=== PATIENT | female | born 1970 | race Caucasian/White ===

== ENCOUNTER → 2019-12-28 08:06 | Outpatient (CLI) | payer OTHER, SELFPAY ==
[2019-12-28 08:42] LABS: HDL Cholesterol 83 mg/dL (40-60); Triglycerides 216 mg/dL (35-150)
[2019-12-28 08:48] LABS: Cholesterol 320 mg/dL (140-199); LDL Cholesterol Calculated 194 mg/dL (<100)
[2019-12-28 09:19] LABS: Free T4, Direct Thyroxine 0.59 ng/dL (0.78-2.19)
== END ==
PROVIDERS: PCP Nurse Practitioner; Referring Provider Nurse Practitioner; Visit Provider Nurse Practitioner
DX: Z13.220 Encounter for screening for lipoid disorders (principal); E03.9 Hypothyroidism, unspecified; N95.9 Unspecified menopausal and perimenopausal disorder
CPT/HCPCS: 36415; 80061; 83001; 84439; 84443

== ENCOUNTER 2020-02-15 03:11 | Emergency (ER) | payer OTHER, SELFPAY ==
[2020-02-15 03:22] VITALS: BP 119/67; PULSE 72; RESP 14; TEMP 36.6; O2SAT 99; BMI 23.0
--- NOTE | 2020-02-15 03:30 | DI.RAD.S_ITS ---
PROCEDURE: XR CHEST 1V INDICATIONS: chest pain TECHNIQUE: One view of the chest was acquired. COMPARISON: None. FINDINGS: Surgical changes and devices: Right axillary clips.. Lungs and pleura: Lungs are clear. No pleural effusions or pneumothorax. Mediastinum: Mediastinal contours appear normal. Heart size is normal. Bones and chest wall: No suspicious bony lesions. Overlying soft tissues appear unremarkable. IMPRESSION: No acute cardiopulmonary disease process. Dictated by: Jenifer Mora MD, PhD on 02/15/2020 at 8:26 Approved by: Jenifer Mora MD, PhD on 02/15/2020 at 8:26
--- NOTE | 2020-02-15 03:33 | ED.CHESTPAIN ---
HPI - Chest Pain General Chief Complaint: Chest Pain Stated Complaint: chest pain through to back Time Seen by Provider: 02/15/20 03:14 Source: patient Mode of arrival: Ambulatory Limitations: no limitations History of Present Illness HPI narrative: The patient developed lower sternal chest pain yesterday evening. She has some discomfort when she went to bed. The discomfort persists, she is epigastric/lower chest pain radiating to her back. Apparently she has had similar pain before. Cardiac workups have always been negative. She does not think she has cardiac disease. A doctor's previously suggested that she has GERD. The pain is not radiate to her throat. She has never had EGD, barium swallow, or other evaluation to confirm the diagnosis. She takes ibuprofen almost every evening. She has no history of bleeding ulcers. She did take Pepcid, the Pepcid did not help. She has not been ill. She has no fever chills. She has no cough. Related Data Previous Rx's Medication Instructions Recorded tolterodine 4 mg capsule,extended 4 mg PO DAILY #90 cap 10/30/19 release 24 hr estradiol 0.075 mg/24 hr 1 patch TRANSDERMAL 2XW #24 each 11/02/19 semiweekly transdermal patch levothyroxine 175 mcg capsule 175 mcg PO DAILY #90 cap 11/02/19 progesterone micronized 100 mg 100 mg PO QAM #90 cap 11/02/19 capsule voltaren 10% gel See Rx Instructions .ROUTE 11/02/19 .COMPLEX #30 gram omeprazole 20 mg PO DAILY 14 Days cap 02/15/20 Allergies Allergy/AdvReac Type Severity Reaction Status Date / Time No Known Drug Allergies Allergy Verified 02/15/20 03:26 Review of Systems Review of Systems ROS Unobtainable: All systems reviewed & are unremarkable except as noted in HPI and below Constitutional Constitutional: Denies chills and Denies fever(s) ENT Ears, Nose, Mouth, and Throat: Denies dizziness and Denies sore throat Cardiovascular Cardiovascular: Reports as per HPI, Reports system reviewed and no additional complaints, except as documented and Denies dyspnea Respiratory Respiratory: Denies cough and Denies dyspnea Gastrointestinal Gastrointestinal: Reports as per HPI and Reports system reviewed and no additional complaints, except as documented Musculoskeletal Comments: Back pain is noted HPI. Integumentary/Breasts Skin/Breast: Denies erythema and Denies rash Neurologic Neurologic: Denies dizziness Patient History Medical History Bilateral hip pain (Chronic ~2018) Foot pain (Chronic) Hypothyroidism (acquired) (Acute) Melanoma (Inactive) Urinary urgency (Acute) Surgical History Anesthesia (Resolved) History of breast augmentation (Resolved ~2006) History of thyroidectomy (Resolved ~2005) History of tubal ligation (Resolved ~2005) Family History Father Hypertension Alcoholic Mother COPD (chronic obstructive pulmonary disease) Brother Suicide Social History Smoking Status: Never smoker Smoking Status: Never smoker alcohol intake frequency: 0-2 drinks per day Alcohol type: wine Substance Use Type: does not use Exam Initial Vital Signs Initial Vital Signs: Vital Signs Temperature 97.8 F 02/15/20 03:22 Pulse Rate 72 02/15/20 03:22 Respiratory Rate 14 02/15/20 03:22 Blood Pressure 119/67 02/15/20 03:22 Pulse Oximetry 99 02/15/20 03:22 Const General: cooperative and well developed Nutritional Appearance: well nourished [facility] Head: normocephalic and atraumatic Throat: posterior oropharynx normal Eyes Conjunctivae: conjunctivae normal Neck Neck: No JVD Chest Other: Lower sternal discomfort with palpation. Resp Effort & Inspection: normal respiratory effort and able to speak in complete sentences Auscultation: clear to auscultation bilaterally, no rales, no rhonchi and no wheezes Cardio Rate: regular rate Rhythm: regular rhythm Heart Sounds: S1 normal, S2 normal, no click, no gallops, no murmurs and no rubs Pulses: normal peripheral pulses GI Other: Mild epigastric discomfort. No distention. No guarding or rebound. Back/Spine/Pelvis Back: normal to inspection and No back tenderness Skin General: no rashes or lesions noted Neuro General: patient alert, patient oriented x3, gait normal and no focal motor deficits Speech: speech normal Extrem General: full ROM, no pedal edema and no calf tenderness Psych Appearance: well kempt Mental Status: mental status grossly normal Attitude: cooperative Course Course Course Narrative: The patient is pain-free after receiving the Protonix and GI cocktail. The cardiac workup is benign. She is discharged applied sec. She is advised follow-up her doctor, I would recommend an upper GI series. Orders Ordered: ED Orders 02/15/20 03:30 XR chest 1V Stat 02/15/20 03:40 Complete Blood Count AUTO DIFF Stat Comprehensive Metabolic Panel Stat Lipase Stat Prothrombin Time INR Stat Troponin & CK Cardiac Panel Stat Discontinued Medications Al Hydrox/Mg Hydrox/Simethicone 20 ml/ Lidocaine HCl 15 ml 0 ml PO NOW ONE Stop: 02/15/20 03:33 Last Admin: 02/15/20 03:46 Dose: 35 ml Documented by: GAUTAM Pantoprazole Sodium (Protonix) 40 mg IV NOW ONE Stop: 02/15/20 03:31 Last Admin: 02/15/20 03:46 Dose: 40 mg Documented by: GAUTAM Vital Signs Vital signs: Vital Signs - 8 hr 02/15/20 03:22 02/15/20 04:38 Temperature 97.8 F Pulse Rate 72 76 Respiratory Rate 14 15 Blood Pressure 119/67 Blood Pressure [Right Arm] 114/65 Pulse Oximetry 99 97 MDM - Chest Pain Lab Data Result diagrams: 02/15/20 03:40 02/15/20 03:40 Labs: Lab Results 02/15/20 02/15/20 02/15/20 Range/Units 03:40 03:40 03:40 WBC 4.4 L (4.5-11.0) X10^3/uL RBC 3.77 L (4.0-5.2) X10^6/uL Hgb 12.4 (12.0-16.0) g/dL Hct 36.0 (36-46) % MCV 95.3 (80-100) fL MCH 32.9 (26-34) PG MCHC 34.5 (30-36) % RDW 12.6 (11.6-14.8) % Plt Count 258 (150-400) X10^3/uL Neut % (Auto) 49.2 L (50-75) % Lymph % (Auto) 38.5 (25-40) % [place] % (Auto) 10.1 (3-14) % Eos % (Auto) 1.6 L (2-4) % Baso % (Auto) 0.6 (0-2) % Neut # (Auto) 2200 (2462-5544) /uL Lymph # (Auto) 1700 (8093-0520) /uL [place] # (Auto) 400 (0-900) /uL Eos # (Auto) 100 (0-450) /uL Baso # (Auto) 0 (0-100) /uL PT 11.3 (10.1-12.7) SECONDS INR 1.0 (0.9-1.3) Sodium 136 L (137-145) mmol/L Potassium 3.9 (3.4-5.1) mmol/L Chloride 106 (98-107) mmol/L Carbon Dioxide 27 (22-32) mmol/L BUN 17 (7-17) mg/dL Creatinine 0.78 (0.52-1.04) mg/dL Estimated GFR > 60.0 (>60) mL/min BUN/Creatinine Ratio 21.8 (6-22) Glucose 114 H (70-100) mg/dL Calcium 9.5 (8.4-10.2) mg/dL Total Bilirubin 0.3 (0.2-1.3) mg/dL AST 25 (14-36) IU/L ALT 19 (<35) IU/L Alkaline Phosphatase 42 (38-126) U/L Total Creatine Kinase 44 (30-135) U/L CK-MB (CK-2) TNP CK-MB (CK-2) Rel Index TNP Troponin I < 0.012 (0.01-0.034) ng/mL Total Protein 6.8 (6.3-8.2) g/dL Albumin 4.0 (3.5-5.0) g/dL Globulin 2.8 (1.7-4.1) g/dL Albumin/Globulin Ratio 1.4 (1.0-2.8) Lipase 88 (23-300) U/L Imaging Data Chest x-ray: My Impression: normal ECG Data Attestation: I personally reviewed and interpreted this ECG as follows: (Normal sinus rhythm rate 67 beats per minute. Normal intervals. No ectopy. No acute ST T wave changes.) Discharge Plan Departure Patient Disposition: Home Clinical Impression: Abdominal pain, epigastric Gastritis Qualifiers: Gastritis type: unspecified gastritis Chronicity: acute Gastritis bleeding: without bleeding Qualified Code(s): K29.00 - Acute gastritis without bleeding Instructions: DI for Epigastric Pain Activity Restrictions/Additional Instructions: Prilosec 20 mg daily for 2 weeks. Avoid ibuprofen. Tylenol 2 tabs every 4 hours as needed pain Recheck with her doctor, consider upper GI series for further evaluation Return to the ER as needed. Prescriptions: New omeprazole 20 mg capsule,delayed release(DR/EC) 20 mg PO DAILY 14 Days RF: 0 No Action estradiol 0.075 mg/24 hr patch semiweekly 1 patch transdermal 2XW Qty: 24 RF: 3 levothyroxine 175 mcg capsule 175 mcg PO DAILY Qty: 90 RF: 3 progesterone micronized 100 mg capsule 100 mg PO QAM Qty: 90 RF: 3 voltaren 10% gel See Rx Instructions .ROUTE .COMPLEX Qty: 30 RF: 2 tolterodine 4 mg capsule,extended release 24hr 4 mg PO DAILY Qty: 90 RF: 3 Referrals: Sarah Alves ARNP [Primary Care Provider] -
[2020-02-15] MEDS: MAG HYDROX/ALUMINUM/SIMETH SUS 20 ML, LIDOCAINE VISCOUS 2% 15 ML PO (03:46)
[2020-02-15] MEDS: PANTOPRAZOLE 40 MG VIAL IV (03:46)
[2020-02-15 03:49] LABS: Add Manual Diff / Slide Review NO; Basophils Absolute Auto 0 /uL (0-100); Basophils Percent Auto 0.6 % (0-2); Eosinophils Absolute Auto 100 /uL (0-450); Eosinophils Percent Auto 1.6 % (2-4); Hemoglobin 12.4 g/dL (12.0-16.0); Lymphocytes Absolute Auto 1700 /uL (1100-4500); Lymphocytes Percent Auto 38.5 % (25-40); Mean Corpuscular HGB Conc 34.5 % (30-36); Mean Corpuscular Hemoglobin 32.9 PG (26-34); Mean Corpuscular Volume 95.3 fL (80-100); Monocytes Absolute Auto 400 /uL (0-900); Monocytes Percent Auto 10.1 % (3-14); Neutrophils Absolute Auto 2200 /uL (1500-7000); Neutrophils Percent Auto 49.2 % (50-75); Platelet Count 258 X10^3/uL (150-400); Red Blood Cell Count 3.77 X10^6/uL (4.0-5.2); Red Cell Distribution Width 12.6 % (11.6-14.8); White Blood Cell Count 4.4 X10^3/uL (4.5-11.0)
[2020-02-15 03:53] LABS: Prothrombin Time 11.3 SECONDS (10.1-12.7)
[2020-02-15 03:58] LABS: Alanine Aminotransferase 19 IU/L (<35); Albumin Globulin Ratio 1.4 (1.0-2.8); Alkaline Phosphatase 42 U/L (38-126); Aspartate Aminotransferase 25 IU/L (14-36); BUN Creatinine Ratio 21.8 (6-22); Bilirubin Total 0.3 mg/dL (0.2-1.3); Blood Urea Nitrogen 17 mg/dL (7-17); Calcium 9.5 mg/dL (8.4-10.2); Carbon Dioxide 27 mmol/L (22-32); Chloride 106 mmol/L (98-107); Creatine Kinase 44 U/L (30-135); Estimated Glomerular Filt Rate > 60.0 mL/min (>60); Globulin 2.8 g/dL (1.7-4.1); Glucose 114 mg/dL (70-100); HEMOLYSIS < 15 (0-50); Lipase 88 U/L (23-300); Potassium 3.9 mmol/L (3.4-5.1); Sodium 136 mmol/L (137-145); Total Protein 6.8 g/dL (6.3-8.2)
[2020-02-15 04:09] LABS: Troponin I < 0.012 ng/mL (0.01-0.034)
[2020-02-15 04:38] VITALS: BP 114/65; PULSE 76; RESP 15; O2SAT 97
== END 2020-02-15 04:57 | disposition home or self-care (01) ==
PROVIDERS: Emergency Provider Emergency Medicine; PCP Nurse Practitioner
DX: R10.13 Epigastric pain (principal); K29.00 Acute gastritis without bleeding; R07.9 Chest pain, unspecified
CPT/HCPCS: 36415; 71045; 80053; 82550; 83690; 84484; 85025; 85610; 93005; 96374; 99284; C9113

== ENCOUNTER → 2020-06-28 | Outpatient (CLI) | payer OTHER, SELFPAY | PROVIDERS: PCP Nurse Practitioner; Referring Provider Internal Medicine; Visit Provider Internal Medicine | DX: Z23 Encounter for immunization (principal) | CPT/HCPCS: 90471; 90686 ==

== ENCOUNTER → 2020-08-10 13:14 | Outpatient (CLI) | payer OTHER, SELFPAY ==
[2020-08-10 15:55] LABS: COVID19 -Nasal RAPID Negative (Negative)
== END ==
PROVIDERS: PCP Nurse Practitioner; Visit Provider Physician Assistant
DX: Z11.59 Encounter for screening for other viral diseases (principal)
CPT/HCPCS: 87635

== ENCOUNTER → 2020-09-01 09:01 | Outpatient (CLI) | payer OTHER, SELFPAY ==
[2020-09-01] MEDS: COVID-19 VACC(MODERNA-1)/PF 100 MCG/0.5 ML VIAL IM (09:08)
== END ==
PROVIDERS: PCP Nurse Practitioner; Visit Provider Internal Medicine
DX: Z23 Encounter for immunization (principal)
CPT/HCPCS: 0011A; 91301

== ENCOUNTER → 2020-09-28 07:59 | Outpatient (CLI) | payer OTHER, SELFPAY ==
[2020-09-28] MEDS: COVID-19 VACC #2, MRNA(MOD) 100 MCG/0.5 ML VIAL IM (08:01)
== END ==
PROVIDERS: PCP Nurse Practitioner; Visit Provider Internal Medicine
DX: Z23 Encounter for immunization (principal)
CPT/HCPCS: 0012A; 91301

== ENCOUNTER → 2020-10-07 10:41 | Outpatient (CLI) | payer OTHER, SELFPAY ==
[2020-10-07 12:16] LABS: Free T4, Direct Thyroxine 3.24 ng/dL (0.78-2.19)
[2020-10-07 12:31] LABS: Thyroid Stimulating Hormone < 0.015 uIU/mL (0.47-4.68)
== END ==
PROVIDERS: PCP Nurse Practitioner; Referring Provider Nurse Practitioner; Visit Provider Nurse Practitioner
DX: E03.9 Hypothyroidism, unspecified (principal)
CPT/HCPCS: 36415; 84439; 84443

== ENCOUNTER → 2020-11-23 15:23 | Outpatient (CLI) | payer OTHER, SELFPAY ==
[2020-11-23 17:45] LABS: Thyroid Stimulating Hormone < 0.015 uIU/mL (0.47-4.68)
== END ==
PROVIDERS: PCP Nurse Practitioner; Referring Provider Nurse Practitioner; Visit Provider Nurse Practitioner
DX: E03.9 Hypothyroidism, unspecified (principal); Z79.899 Other long term (current) drug therapy
CPT/HCPCS: 36415; 84443

== ENCOUNTER → 2021-05-24 16:12 | Outpatient (CLI) | payer OTHER, SELFPAY ==
--- NOTE | 2021-05-24 16:16 | DI.US.S_ITS ---
PROCEDURE: US SOFT TISSUE HEAD AND NECK INDICATIONS: MASS/SWELLING LT NECK TECHNIQUE: Real-time scanning was performed of the neck region of interest, with image documentation. COMPARISON: None. FINDINGS: Small normal appearing lymph nodes are seen in bilateral neck soft tissue measures up to 3 mm in short axis diameter in left neck soft tissue and up to 3 mm in short axis diameter in right neck soft tissue. No discrete soft tissue mass or fluid collection is seen. IMPRESSION: Benign-appearing small bilateral neck soft tissue lymph nodes. No pathologically enlarged lymph nodes, soft tissue mass or fluid collection. Dictated by: Antoni Calderon M.D. on 05/24/2021 at 23:24 Approved by: Antoni Calderon M.D. on 05/24/2021 at 23:25
== END ==
PROVIDERS: PCP Nurse Practitioner; Referring Provider Nurse Practitioner; Visit Provider Nurse Practitioner
DX: E03.9 Hypothyroidism, unspecified (principal); R22.1 Localized swelling, mass and lump, neck
CPT/HCPCS: 76536

== ENCOUNTER → 2021-06-27 | Outpatient (CLI) | payer OTHER, SELFPAY ==
--- NOTE | 2021-06-27 | DI.MG.S_ITS ---
BILATERAL DIGITAL SCREENING MAMMOGRAM 3D/2D WITH CAD WITH AUGMENTATION: 06/27/2021 CLINICAL: Routine screening. Baseline exam. No prior exams were available for comparison. There are scattered fibroglandular elements in both breasts. Current study was also evaluated with a Computer Aided Detection (CAD) system. There is an oval low density asymmetry with an indistinct and circumscribed margin in the right breast middle depth inferior region seen on the mediolateral oblique view only. No other significant masses, calcifications, or other findings are seen in either breast. IMPRESSION: INCOMPLETE: NEEDS ADDITIONAL IMAGING EVALUATION The oval low density asymmetry in the right breast is indeterminate. Mediolateral and spot compression views as well as additional views with possible ultrasound are recommended. This exam was interpreted at Station ID: [id number]. NOTE: For mammograms, a report in lay terms will be sent to the patient. Approximately 15% of breast malignancies will not be visualized mammographically. In the management of a palpable breast mass, a negative mammogram must not discourage biopsy of a clinically suspicious lesion. Electronically Signed By: Kris jama/payam:07/05/2021 09:19:37 letter sent: Additional Imaging Needed ACR BI-RADS Category 0: Incomplete 3340F
== END ==
LOC: MAMMO 11:23
PROVIDERS: PCP Nurse Practitioner; Referring Provider Nurse Practitioner; Visit Provider Nurse Practitioner
DX: Z12.31 Encounter for screening mammogram for malignant neoplasm of breast (principal)
CPT/HCPCS: 77063; 77067

== ENCOUNTER → 2021-07-03 17:03 | Outpatient (CLI) | payer OTHER, SELFPAY ==
[2021-07-03 18:28] LABS: Thyroid Stimulating Hormone 26.6 uIU/mL (0.47-4.68)
== END ==
PROVIDERS: PCP Nurse Practitioner; Referring Provider Nurse Practitioner; Visit Provider Nurse Practitioner
DX: E03.9 Hypothyroidism, unspecified (principal); R22.1 Localized swelling, mass and lump, neck
CPT/HCPCS: 36415; 84443

== ENCOUNTER 2021-07-16 22:38 | Emergency (ER) | payer OTHER, SELFPAY ==
[2021-07-16 22:43] VITALS: BP 133/69; PULSE 76; RESP 16; TEMP 36.4; O2SAT 98; BMI 23.0
[2021-07-16 23:07] LABS: Add Manual Diff / Slide Review NO; Basophils Absolute Auto 0 /uL (0-100); Basophils Percent Auto 0.4 % (0-2); Eosinophils Absolute Auto 100 /uL (0-450); Hematocrit 37.6 % (36-46); Hemoglobin 12.9 g/dL (12.0-16.0); Lymphocytes Absolute Auto 1800 /uL (1100-4500); Mean Corpuscular HGB Conc 34.2 % (30-36); Mean Corpuscular Hemoglobin 32.6 PG (26-34); Mean Corpuscular Volume 95.2 fL (80-100); Monocytes Absolute Auto 500 /uL (0-900); Monocytes Percent Auto 7.1 % (3-14); Neutrophils Absolute Auto 4600 /uL (1500-7000); Neutrophils Percent Auto 65.5 % (50-75); Platelet Count 240 X10^3/uL (150-400); Red Blood Cell Count 3.95 X10^6/uL (4.0-5.2); White Blood Cell Count 7.1 X10^3/uL (4.5-11.0)
[2021-07-16] MEDS: PANTOPRAZOLE 40 MG VIAL IV (23:08)
[2021-07-16] MEDS: MAG HYDROX/ALUM/SIMETH 30 ML UDC PO (23:08)
[2021-07-16] MEDS: LIDOCAINE VISCOUS 2% 15 ML SOLUTION PO (23:08)
[2021-07-16] MEDS: ONDANSETRON 4 MG/2 ML INJ (23:14)
[2021-07-16 23:22] LABS: Alanine Aminotransferase 19 IU/L (<35); Albumin 4.5 g/dL (3.5-5.0); Albumin Globulin Ratio 1.6 (1.0-2.8); Alkaline Phosphatase 42 U/L (38-126); Aspartate Aminotransferase 26 IU/L (14-36); BUN Creatinine Ratio 25.6 (6-22); Bilirubin Total 0.3 mg/dL (0.2-1.3); Blood Urea Nitrogen 21 mg/dL (7-17); Calcium 9.7 mg/dL (8.4-10.2); Carbon Dioxide 34 mmol/L (22-32); Chloride 102 mmol/L (98-107); Estimated Glomerular Filt Rate > 60.0 mL/min (>60); Globulin 2.9 g/dL (1.7-4.1); Glucose 124 mg/dL (70-100); HEMOLYSIS < 15 (0-50); Lipase 115 U/L (23-300); Potassium 3.8 mmol/L (3.4-5.1); Sodium 141 mmol/L (137-145); Total Protein 7.4 g/dL (6.3-8.2)
--- NOTE | 2021-07-16 23:45 | DI.US.S_ITS ---
PROCEDURE: US ABDOMEN LIMITED INDICATIONS: SEVERE EPIGASTRIC PAIN THAT RADIATES TO BACK TECHNIQUE: Real-time scanning was performed of the abdominal and retroperitoneal organs, with image documentation. COMPARISON: None. FINDINGS: Liver: Liver is normal in size and homogeneous in echotexture. Gallbladder: Gallbladder is normal in sonographic appearance without gallstones, gallbladder wall thickening, pericholecystic fluid, or abnormal sonographic Santiago's. Biliary ducts: Intrahepatic bile ducts are non-dilated. Extrahepatic bile duct caliber measures 2 mm. Normal is 6-7 mm or less in diameter, or 10 mm or less post-cholecystectomy. Pancreas: Visualized portions of the pancreas are sonographically normal. Miscellaneous: No free abdominal fluid. IMPRESSION: No acute sonographic abnormalities identified in the right upper abdomen. Dictated by: Db Glover M.D. on 07/17/2021 at 0:15 Approved by: Db Glover M.D. on 07/17/2021 at 0:16
[2021-07-16] MEDS: MORPHINE 4 MG/ML INJ IV (23:50)
--- NOTE | 2021-07-16 23:54 | ED.ABDPAIN ---
HPI - Abdominal Pain General Chief Complaint: Abdominal Pain Stated Complaint: GASTRIC PAIN Time Seen by Provider: 07/16/21 22:42 Source: patient Mode of arrival: Ambulatory History of Present Illness HPI narrative: 51-year-old female nonsmoker presents with significant other and a chief complaint of severe epigastric pain for the past 24 hours or so. She states that it came on rather suddenly and is largely in her epigastrium but wraps around her sides into her back. She has nausea but denies any vomiting. She states she has had multiple episodes of this in the past without any specific diagnosis. She has had no fever or chills. She states that she sometimes has improvement with GI cocktails but did not this time around. She does occasionally drink alcohol and did yesterday. She denies any chest pain or shortness of breath. She has had no recent travel, history of clot or cancer. Her pain is worse when she moves and improves with rest. Related Data Previous Rx's Medication Instructions Recorded voltaren 10% gel See Rx Instructions .ROUTE 11/02/19 .COMPLEX #30 gram progesterone micronized 100 mg 100 mg PO QAM #30 cap 10/26/20 capsule tolterodine 4 mg capsule,extended 4 mg PO DAILY #30 cap 10/26/20 release 24 hr levothyroxine 150 mcg tablet 150 mcg PO DAILY #90 tab 11/28/20 estradiol 0.075 mg/24 hr 1 patch TRANSDERMAL 3XW #36 ea 06/01/21 semiweekly transdermal patch Allergies Allergy/AdvReac Type Severity Reaction Status Date / Time No Known Drug Allergies Allergy Verified 07/16/21 22:46 Review of Systems Review of Systems Narrative: GENERAL: Denies chills, fatigue, malaise, fever, sweats. HEENT: Denies sinus pain, ear pain, sore throat, difficulty swallowing, dizziness. RESPIRATORY: Denies dyspnea, cough, wheezing, hemoptysis, sputum. CARDIOVASCULAR: Denies chest pain, palpitations, orthopnea, edema, GASTROINTESTINAL: Denies nausea, vomiting, abdominal pain, diarrhea, constipation, melena. : Denies dysuria, frequency, incontinence, hematuria, urinary retention. MUSCULOSKELETAL: denies weakness, joint pain, or bony pain SKIN: Denies rash, skin lesions, or other NEUROLOGIC: Denies weakness, headache, numbness, change in speech, confusion, seizures, incoordination. PSYCHIATRIC: No concerning psychosocial issues. 12 point review of systems is negative except for those stated above Patient History Medical History (Updated 07/17/21 @ 00:48 by Toby Everett DO) Bilateral hip pain (~2018) Foot pain Hypothyroidism (acquired) Melanoma Urinary urgency Surgical History (Updated 10/06/20 @ 07:25 by OtherInbox De) Anesthesia History of breast augmentation (~2006) History of thyroidectomy (~2005) History of tubal ligation (~2005) Family History Father Hypertension Alcoholic Mother COPD (chronic obstructive pulmonary disease) Brother Suicide Social History Smoking Status: Never smoker Smoking Status: Never smoker alcohol intake frequency: 0-2 drinks per day Alcohol type: wine Substance Use Type: does not use Exam Narrative Exam Narrative: GENERAL: 51 [] year old patient appears stated age. Well-developed patient, in mild distress. HEAD: Atraumatic. Normocephalic. EYES: Pupils equal round and reactive. Extraocular motions intact. No scleral icterus. No injection or drainage. ENT: Nose without bleeding, purulent drainage. Throat without erythema, tonsillar hypertrophy or exudate. Airway patent. NECK: Trachea midline. Non tender CARDIOVASCULAR: Regular rate and rhythm without murmurs, gallops, or rubs. RESPIRATORY: Clear to auscultation. Breath sounds equal bilaterally. No wheezes, rales, or rhonchi. GASTROINTESTINAL: Abdomen soft, non-tender, nondistended. EXTREMITIES: No edema or joint tenderness. BACK: Nontender without deformity or crepitance. No flank tenderness. NEURO: AOx3. SKIN: No rash or erythema of visible areas Initial Vital Signs Initial Vital Signs: Vital Signs Temperature 97.6 F 07/16/21 22:43 Pulse Rate 76 07/16/21 22:43 Respiratory Rate 16 07/16/21 22:43 Blood Pressure 133/69 07/16/21 22:43 Pulse Oximetry 98 07/16/21 22:43 Course Orders Ordered: ED Orders 07/16/21 23:03 Complete Blood Count AUTO DIFF Stat Comprehensive Metabolic Panel Stat Lipase Stat 07/16/21 23:45 US abdomen limited Stat Discontinued Medications Al Hydrox/Mg Hydrox/Simethicone (Mag Hydrox/Alum/Simeth 30 Ml Udc) 30 ml PO NOW ONE Stop: 07/16/21 22:54 Last Admin: 07/16/21 23:08 Dose: 30 ml Documented by: ZARI Sodium Chloride (Normal Saline 0.9%) 1,000 mls @ 150 mls/hr IV CONT CLARKE Lidocaine HCl (Lidocaine Viscous 2% 15 Ml Solution) 15 ml PO NOW ONE Stop: 07/16/21 22:54 Last Admin: 07/16/21 23:08 Dose: 15 ml Documented by: ZARI Morphine Sulfate (Morphine 4 Mg/Ml Inj) 4 mg IV NOW ONE Stop: 07/16/21 23:46 Last Admin: 07/16/21 23:50 Dose: 4 mg Documented by: ZARI Pantoprazole Sodium (Pantoprazole 40 Mg Vial) 40 mg IV NOW ONE Stop: 07/16/21 22:51 Last Admin: 07/16/21 23:08 Dose: 40 mg Documented by: ZARI Vital Signs Vital signs: Vital Signs - 8 hr 07/16/21 22:43 Temperature 97.6 F Pulse Rate 76 Respiratory Rate 16 Blood Pressure 133/69 Pulse Oximetry 98 MDM - Abdominal Pain Lab Data Result diagrams: 07/16/21 23:03 07/16/21 23:03 Labs: Lab Results 07/16/21 07/16/21 Range/Units 23:03 23:03 WBC 7.1 (4.5-11.0) X10^3/uL RBC 3.95 L (4.0-5.2) X10^6/uL Hgb 12.9 (12.0-16.0) g/dL Hct 37.6 (36-46) % MCV 95.2 (80-100) fL MCH 32.6 (26-34) PG MCHC 34.2 (30-36) % RDW 13.0 (11.6-14.8) % Plt Count 240 (150-400) X10^3/uL Neut % (Auto) 65.5 (50-75) % Lymph % (Auto) 26.0 (25-40) % [place] % (Auto) 7.1 (3-14) % Eos % (Auto) 1.0 L (2-4) % Baso % (Auto) 0.4 (0-2) % Neut # (Auto) 4600 (8888-5327) /uL Lymph # (Auto) 1800 (7991-7642) /uL [place] # (Auto) 500 (0-900) /uL Eos # (Auto) 100 (0-450) /uL Baso # (Auto) 0 (0-100) /uL Sodium 141 (137-145) mmol/L Potassium 3.8 (3.4-5.1) mmol/L Chloride 102 (98-107) mmol/L Carbon Dioxide 34 H (22-32) mmol/L BUN 21 H (7-17) mg/dL Creatinine 0.82 (0.52-1.04) mg/dL Estimated GFR > 60.0 (>60) mL/min BUN/Creatinine Ratio 25.6 H (6-22) Glucose 124 H (70-100) mg/dL Calcium 9.7 (8.4-10.2) mg/dL Total Bilirubin 0.3 (0.2-1.3) mg/dL AST 26 (14-36) IU/L ALT 19 (<35) IU/L Alkaline Phosphatase 42 (38-126) U/L Total Protein 7.4 (6.3-8.2) g/dL Albumin 4.5 (3.5-5.0) g/dL Globulin 2.9 (1.7-4.1) g/dL Albumin/Globulin Ratio 1.6 (1.0-2.8) Lipase 115 (23-300) U/L Imaging Data US - abdomen: Radiologist's Impression: Blank Barron (Belia) 51 F [address] [id number] ReportSigned Patient: Blank Barron [facility]#: [id number]: 1970Acct:[id number]/Sex: 51 / FDate of Service: 07/16/21Loc: EDAccession Number: [id number] Procedure: US abdomen limited Ordering Provider: Toby Everett D.O. PROCEDURE: US ABDOMEN LIMITED INDICATIONS: SEVERE EPIGASTRIC PAIN THAT RADIATES TO BACK TECHNIQUE: Real-time scanning was performed of the abdominal and retroperitoneal organs, with image documentation. COMPARISON: None. FINDINGS: Liver: Liver is normal in size and homogeneous in echotexture. Gallbladder: Gallbladder is normal in sonographic appearance without gallstones, gallbladder wall thickening, pericholecystic fluid, or abnormal sonographic Santiago's. Biliary ducts: Intrahepatic bile ducts are non-dilated. Extrahepatic bile duct caliber measures 2 mm. Normal is 6-7 mm or less in diameter, or 10 mm or less post-cholecystectomy. Pancreas: Visualized portions of the pancreas are sonographically normal. Miscellaneous: No free abdominal fluid. IMPRESSION: No acute sonographic abnormalities identified in the right upper abdomen. Dictated by: Db Glover M.D. on 07/17/2021 at 0:15 Approved by: Db Glover M.D. on 07/17/2021 at 0:16 Discharge Plan Departure Patient Disposition: Home Clinical Impression: Epigastric abdominal pain Instructions: DI for Epigastric Pain Activity Restrictions/Additional Instructions: *You have been diagnosed with [epigastric pain with a very reassuring history, physical, labs and ultrasound.] *What to do: *Please continue to take your regular medications as directed. [ ] New medication prescriptions sent to your pharmacy: [ ] [ ] New medication written as a paper prescription [x ] No new medications given *Please follow up with your primary care provider in 2-3 days, call for an appointment. Let them know you were seen in the Emergency Department and that we ask that you be seen in follow up. We will electronically transmit a record of today's note if your PCP is in our system *If you do not have a primary care provider please contact the [facility] Resource line at [phone]. They will ask some questions about your medical history and help get you set up with a doctor in the community. *Return to Emergency Department if you should have any new, worsening or concerning symptoms, such as [fever greater than 101 F, shaking chills, worsening pain, persistent vomiting or other bothersome symptoms] Prescriptions: No Action voltaren 10% gel See Rx Instructions .ROUTE .COMPLEX Qty: 30 RF: 2 progesterone micronized 100 mg capsule 100 mg PO QAM Qty: 30 RF: 0 tolterodine 4 mg capsule,extended release 24hr 4 mg PO DAILY Qty: 30 RF: 0 levothyroxine 150 mcg tablet 150 mcg PO DAILY Qty: 90 RF: 3 estradiol 0.075 mg/24 hr patch semiweekly 1 patch transdermal 3XW Qty: 36 RF: 3 Referrals: Sarah Alves ARNP [Primary Care Provider] -
== END 2021-07-17 01:05 | disposition home or self-care (01) ==
PROVIDERS: Emergency Provider Emergency Medicine; PCP Nurse Practitioner
DX: R10.13 Epigastric pain (principal)
CPT/HCPCS: 36415; 76705; 80053; 83690; 85025; 96374; 96375; 99284; C9113; J2270; J2405

== ENCOUNTER → 2021-08-01 13:08 | Outpatient (CLI) | payer OTHER, SELFPAY ==
--- NOTE | 2021-08-01 | DI.MG.S_ITS ---
UNILATERAL RIGHT DIGITAL DIAGNOSTIC MAMMOGRAM 3D/2D WITH ADDITIONAL VIEWS: 08/01/2021 CLINICAL: Additional evaluation requested from prior study. Comparison is made to exam dated: 06/27/2021 [facility]. There are scattered fibroglandular elements in right breast. Right retropectoral silicone implant is present. There are surgical clips in the right axilla. There is an oval low density asymmetry with an indistinct and circumscribed margin in the right breast anterior depth inferior region seen on the mediolateral oblique view only. This is less prominent. No other significant masses or calcifications are seen in the breast. IMPRESSION: INCOMPLETE: NEEDS ADDITIONAL IMAGING EVALUATION The oval low density asymmetry in the right breast is indeterminate. An ultrasound is recommended. This exam was interpreted at Station ID: [id number]. NOTE: For mammograms, a report in lay terms will be sent to the patient. Approximately 15% of breast malignancies will not be visualized mammographically. In the management of a palpable breast mass, a negative mammogram must not discourage biopsy of a clinically suspicious lesion. Electronically Signed By: Nhan lei/payam:08/01/2021 15:18:45 ACR BI-RADS Category 0: Incomplete 3340F
--- NOTE | 2021-08-01 13:10 | DI.US.S_ITS ---
LIMITED ULTRASOUND OF RIGHT BREAST: 08/01/2021 CLINICAL: Additional evaluation requested from prior study. Comparison is made to exams dated: 08/01/2021 mammogram and 06/27/2021 mammogram - [facility]. Real-time ultrasound of the right breast 4-7 o'clock region was performed. Stratton scale images of the real-time examination were reviewed. Fibroglandular tissue but no mass is identifed in the area of the mammographic asymmetry in the right breast inferior region approximately 2-3 cm from the nipple. IMPRESSION: PROBABLY BENIGN No sonographic abnormality is seen corresponding to the mammographic asymmetry in the right breast inferiorly, which was less prominent mammographically when compared to the recent screening exam. Follow up right breast mammogram and possible ultrasound in 6 months are recommended for confirmation. A follow-up right mammogram and an ultrasound in 6 months is recommended to demonstrate stability. This exam was interpreted at Station ID: [id number]. Electronically Signed By: Nhan lei/payam:08/01/2021 15:17:09 letter sent: Followup Recommended Ultrasound BI-RADS: 3 Probably benign
== END ==
PROVIDERS: PCP Nurse Practitioner; Referring Provider Nurse Practitioner; Visit Provider Nurse Practitioner
DX: R92.8 Other abnormal and inconclusive findings on diagnostic imaging of breast (principal); N64.89 Other specified disorders of breast
CPT/HCPCS: 76642; 77065; G0279

== ENCOUNTER → 2022-10-09 11:19 | Outpatient (CLI) | payer OTHER, SELFPAY ==
[2022-10-09 11:55] LABS: Add Manual Diff / Slide Review NO; Basophils Absolute Auto 0 /uL (0-100); Basophils Percent Auto 0.3 % (0-2); Eosinophils Absolute Auto 0 /uL (0-450); Eosinophils Percent Auto 1.1 % (2-4); Hematocrit 36.2 % (36-46); Hemoglobin 12.1 g/dL (12.0-16.0); Lymphocytes Absolute Auto 1600 /uL (1100-4500); Lymphocytes Percent Auto 35.4 % (25-40); Mean Corpuscular HGB Conc 33.5 % (30-36); Mean Corpuscular Hemoglobin 31.9 PG (26-34); Monocytes Absolute Auto 300 /uL (0-900); Monocytes Percent Auto 7.6 % (3-14); Neutrophils Absolute Auto 2500 /uL (1500-7000); Neutrophils Percent Auto 55.6 % (50-75); Platelet Count 250 X10^3/uL (150-400); Red Cell Distribution Width 13.1 % (11.6-14.8); White Blood Cell Count 4.5 X10^3/uL (4.5-11.0)
[2022-10-09 12:22] LABS: Alanine Aminotransferase 28 IU/L (<35); Albumin 4.2 g/dL (3.5-5.0); Albumin Globulin Ratio 1.4 (1.0-2.8); Alkaline Phosphatase 49 U/L (38-126); Aspartate Aminotransferase 28 IU/L (14-36); BUN Creatinine Ratio 19.4 (6-22); Bilirubin Total 0.3 mg/dL (0.2-1.3); Blood Urea Nitrogen 14 mg/dL (7-17); Calcium 8.5 mg/dL (8.4-10.2); Carbon Dioxide 27 mmol/L (22-32); Chloride 103 mmol/L (98-107); Cholesterol 240 mg/dL (140-199); Estimated Glomerular Filt Rate > 60 mL/min (>60); Globulin 2.9 g/dL (1.7-4.1); Glucose 112 mg/dL (70-100); HDL Cholesterol 89 mg/dL (40-60); HEMOLYSIS < 15 (0-50); LDL Cholesterol Calculated 131 mg/dL (<100); Potassium 3.8 mmol/L (3.4-5.1); Sodium 140 mmol/L (137-145); Total Protein 7.1 g/dL (6.3-8.2); Triglycerides 102 mg/dL (35-150)
[2022-10-09 12:32] LABS: Free T3, Triiodothyronine Free 3.05 pg/mL (2.77-5.27); Free T4, Direct Thyroxine 1.33 ng/dL (0.78-2.19)
[2022-10-09 12:46] LABS: Creatinine Urine Random 64.8 mg/dL
[2022-10-09 12:46] LABS: Thyroid Stimulating Hormone 0.231 uIU/mL (0.47-4.68)
[2022-10-09 13:01] LABS: Microalbumin Urine Random < 0.6 mg/dL (0-1.6)
[2022-10-09 13:01] LABS: HIV 1 & 2 Ab/Ag 4th Gen Combo NEGATIVE (NEGATIVE); Hep C Virus Ab w/Reflex Quant NEGATIVE s/c (NEGATIVE)
== END ==
PROVIDERS: PCP Nurse Practitioner; Referring Provider Nurse Practitioner; Visit Provider Nurse Practitioner
DX: Z00.00 Encounter for general adult medical examination without abnormal findings (principal); Z11.4 Encounter for screening for human immunodeficiency virus [HIV]; Z11.59 Encounter for screening for other viral diseases
CPT/HCPCS: 36415; 80053; 80061; 82043; 82570; 84439; 84443; 84481; 85025; 86803; 87389

== ENCOUNTER → 2022-11-07 11:51 | Outpatient (CLI) | payer OTHER, SELFPAY ==
[2022-11-07 12:52] LABS: Appearance Urine UA CLEAR; Bilirubin Urine UA NEGATIVE (NEGATIVE); Color Urine UA YELLOW; Glucose Urine UA NEGATIVE (Negative); Ketones Urine UA NEGATIVE (NEGATIVE); Leukocyte Esterase Urine UA NEGATIVE (NEGATIVE); Nitrite Urine UA NEGATIVE (Negative); Occult Blood Urine UA TRACE-INTACT (Negative); Protein Urine UA NEGATIVE (Negative); Urobilinogen Urine UA 0.2 E.U./dL (0.2)
[2022-11-07 12:59] LABS: Bacteria Urine None Seen; RBC Urine None Seen (0-5/HPF); Squamous Epithelial Cell Urine 1-5 /HPF (0-5/HPF); WBC Urine None Seen (0-5/HPF)
[2022-11-07 13:00] LABS: Culture Indicated Urine Cult Not Indicated
[2022-11-07 13:27] LABS: Thyroid Stimulating Hormone 2.12 uIU/mL (0.47-4.68)
== END ==
PROVIDERS: PCP Nurse Practitioner; Referring Provider Nurse Practitioner; Visit Provider Nurse Practitioner
DX: E03.9 Hypothyroidism, unspecified (principal); R30.0 Dysuria
CPT/HCPCS: 36415; 81001; 84443

== ENCOUNTER → 2022-11-19 12:01 | Outpatient (CLI) | payer OTHER, SELFPAY ==
--- NOTE | 2022-11-19 | DI.MG.S_ITS ---
BILATERAL DIGITAL DIAGNOSTIC MAMMOGRAM 3D/2D WITH AUGMENTATION: 11/19/2022 CLINICAL: Late short term follow up. Comparison is made to exams dated: 08/01/2021 mammogram and 06/27/2021 mammogram - [facility]. Both breasts are heterogeneously dense, which may obscure small masses (category c / 51-75% glandular tissue). Right retropectoral silicone implant is present. There are surgical clips in the right axilla. There is a stable focal asymmetry in the right breast at 5 o'clock in the retroareolar region. No other significant masses, calcifications, or other findings are seen in either breast. IMPRESSION: INCOMPLETE: NEEDS ADDITIONAL IMAGING EVALUATION The stable focal asymmetry in the right breast is indeterminate. A targeted ultrasound of the right breast is recommended and will be performed immediately following this exam. Based on the Tyrer Cuzick model (a risk assessment model) the patient's lifetime risk is 13.9% and her 10 year risk is 4.2%. According to the ACR, ACS, and NCCN guidelines, an annual breast MRI exam along with mammogram is recommended if the patient's lifetime risk is 20% or greater. This exam was interpreted at Station ID: [id number]. NOTE: For mammograms, a report in lay terms will be sent to the patient. Approximately 15% of breast malignancies will not be visualized mammographically. In the management of a palpable breast mass, a negative mammogram must not discourage biopsy of a clinically suspicious lesion. Electronically Signed By: Kelly rowley/:11/19/2022 12:46:06 ACR BI-RADS Category 0: Incomplete 3340F
--- NOTE | 2022-11-19 12:02 | DI.US.S_ITS ---
ULTRASOUND OF RIGHT BREAST: 11/19/2022 CLINICAL: Patient returns today to evaluate a focal asymmetry in the right breast. Comparison is made to exams dated: 11/19/2022 mammogram, 08/01/2021 ultrasound, 08/01/2021 mammogram, and 06/27/2021 mammogram - [facility]. Color flow and real-time ultrasound of the right breast were performed on the areas of interest. Stratton scale images of the real-time examination were reviewed. There is an oval mass in the right breast at 5 o'clock anterior depth. This oval mass is hypoechoic with internal echoes and posterior acoustic enhancement. This correlates with mammography findings. Color flow imaging demonstrates that there is no vascularity present. IMPRESSION: PROBABLY BENIGN The oval mass in the right breast likely represents a fibroadenoma or complicated cyst and is probably benign. A follow-up ultrasound in 6 months is recommended to demonstrate stability. This exam was interpreted at Station ID: [id number]. Electronically Signed By: Kelly rowley/:11/19/2022 13:12:12 letter sent: Followup Recommended Ultrasound BI-RADS: 3 Probably benign
== END ==
PROVIDERS: PCP Nurse Practitioner; Referring Provider Nurse Practitioner; Visit Provider Nurse Practitioner
DX: R92.8 Other abnormal and inconclusive findings on diagnostic imaging of breast (principal); N63.14 Unspecified lump in the right breast, lower inner quadrant
CPT/HCPCS: 76642; 77066; G0279

== ENCOUNTER → 2022-12-12 12:17 | Outpatient (CLI) | payer OTHER, SELFPAY ==
--- NOTE | 2022-12-12 12:17 | DI.US.S_ITS ---
PROCEDURE: US PELVIC COMPLETE INDICATIONS: post menopausal bleeding, on HRT TECHNIQUE: Real-time scanning was performed of the pelvic organs, with image documentation. Additional endovaginal scanning was necessary due to incomplete visualization of the adnexal and endometrial structures by transabdominal scanning. COMPARISON: None. FINDINGS: Uterus: Uterus is anteverted and measures 11.2 x 5.8 x 8.1 cm. The myometrium is heterogeneous. The endometrium measures 8 mm combined thickness. There is a midline, anterior subserosal fibroid which measures 1.4 x 1.3 x 1.2 cm, a midline posterior intramural fibroid which measures 1.7 x 1.5 x 1.6 cm, and a right posterior subserosal fibroid which measures 2.7 x 3.0 x 2.5 cm. Ovaries: Neither ovary is visualized due to overlying bowel gas. Other: No pathologic free abdominal or pelvic fluid. IMPRESSION: 1. Abnormally thickened endometrium in a postmenopausal patient. Hypertrophy and neoplasm cannot be excluded. Endometrial biopsy recommended. 2. Fibroid uterus. 3. Nonvisualization of the ovaries due to overlying bowel gas. We strive to produce accurate, complete, and clear reports of imaging services. To assist us in improving patient care, this report was composed using standard report templates and voice recognition software. Therefore, it may contain abnormal punctuation, insertions and/or omissions. Occasional wrong-word or sound-alike substitutions may occur. Though we review the report and make efforts to correct it, we do recommend that the report be read carefully in proper context to recognize any text inaccuracies. Dictated by: Kelly Wilder M.D. on 12/12/2022 at 14:51 Approved by: Kelly Wilder M.D. on 12/12/2022 at 14:56
== END ==
PROVIDERS: PCP Nurse Practitioner; Referring Provider Nurse Practitioner; Visit Provider Nurse Practitioner
DX: N95.0 Postmenopausal bleeding (principal); R93.89 Abnormal findings on diagnostic imaging of other specified body structures; D25.2 Subserosal leiomyoma of uterus; D25.1 Intramural leiomyoma of uterus
CPT/HCPCS: 76830; 76856

== ENCOUNTER 2023-01-11 04:17 | Emergency (ER) | payer OTHER, SELFPAY ==
[2023-01-11 04:30] VITALS: BP 138/85; PULSE 84; RESP 18; TEMP 36.4; O2SAT 100; BMI 24.7
--- NOTE | 2023-01-11 05:08 | ED_ITS ---
HPI - Skin/Abscess/Foreign Bdy General Chief complaint: Skin/Abscess/Foreign Body Stated complaint: left side facial swelling Time Seen by Provider: 01/11/23 04:54 Source: patient Mode of arrival: Ambulatory Limitations: no limitations History of Present Illness HPI narrative: Patient healthy 52-year-old female presents with left cheek swelling and pain. She reports that on January 03 she received cheek filler. She says of the right side did find however she has had some swelling off and on the left side. She did have some prednisone at home she took a couple doses of prednisone seemed to help initially. She actually had follow-up with a doctor over there. Difficult to tell if it is a localized reaction versus cellulitis however she continued to have improvement until this morning when she woke up at 3:30 a.m. in the morning and noted more swelling. She denies any fever or chills. It does look mildly erythematous. She feels fullness on her teeth. She also took 1 dose of Keflex which she had lying around. Related Data Previous Rx's Medication Instructions Recorded cholecalciferol (vitamin D3) 125 125 mcg PO DAILY #1 cap 09/08/21 mcg (5,000 unit) capsule progesterone micronized 100 mg 300 mg PO QAM #30 caps 09/08/21 capsule estradiol 0.075 mg/24 hr See Rx Instructions .Route 07/09/22 semiweekly transdermal patch .COMPLEX #24 ea levothyroxine 137 mcg tablet 137 mcg PO DAILY #90 tabs 10/10/22 methocarbamol 500 mg tablet 500 mg PO TID #30 tabs 11/28/22 omeprazole 20 mg capsule,delayed 20 mg PO DAILY #30 caps 11/28/22 release cephalexin 500 mg capsule 500 mg PO BID 7 days #14 caps 01/11/23 Allergies Allergy/AdvReac Type Severity Reaction Status Date / Time No Known Drug Allergies Allergy Verified 12/19/22 08:09 Review of Systems Review of Systems ROS Unobtainable: All systems reviewed & are unremarkable except as noted in HPI and below Patient History Medical History Bilateral hip pain (~2018) Depression with anxiety Foot pain Hypothyroidism (acquired) Melanoma Urinary urgency Surgical History Anesthesia History of breast augmentation (~2006) History of thyroidectomy (~2005) History of tubal ligation (~2005) Family History Father Hypertension Alcoholic Mother COPD (chronic obstructive pulmonary disease) Brother Suicide Social History Smoking Status: Never smoker Smoking Status: Never smoker alcohol intake frequency: 0-2 drinks per day Alcohol type: wine Substance Use Type: does not use Exam Initial Vital Signs Initial Vital Signs: Vital Signs Temperature 97.6 F 01/11/23 04:30 Pulse Rate 84 01/11/23 04:30 Respiratory Rate 18 01/11/23 04:30 Blood Pressure 138/85 01/11/23 04:30 Pulse Oximetry 100 01/11/23 04:30 Oxygen Delivery Method Room Air 01/11/23 04:30 GENERAL: Well-appearing, well-nourished and in no acute distress. CARDIOVASCULAR: peripheral pulses in tact, cap refill <2 sec RESPIRATORY: No respiratory distress, speaks in full sentences without difficulty EXTREMITIES: Normal range of motion, no clubbing or edema. Neurovascularly intact NEUROLOGICAL: Cranial nerves II through XII grossly intact. Normal gait and speech. SKIN: Left cheek is swollen mildly erythematous no fluctuation no obvious induration. She is some swelling over the bridge of her nose as. Course Vital Signs Vital signs: Vital Signs - 8 hr 01/11/23 04:30 Temperature 97.6 F Pulse Rate 84 Respiratory Rate 18 Blood Pressure 138/85 Pulse Oximetry 100 Oxygen Delivery Method Room Air MDM - Skin/Abscess/Foreign Bdy MDM Narrative Medical decision making narrative: Patient has history of injectable in left cheek. Possible localized reaction versus infection. After already taking prednisone having some relief from it and now swelling is back. I think reasonable to start taking Keflex close outpatient follow-up. She may need more prednisone however I do not advise carey berrios both together difficult to tell what is helping. He does not have severe is no abscess evidence severe sepsis. Discharge Plan Departure Patient Disposition: Home Clinical Impression: Cellulitis of face Instructions: DI for Cellulitis -- Adult Activity Restrictions/Additional Instructions: *You have been diagnosed with facial cellulitis *What to do: At this time difficult to tell if this is an infection versus inflammatory reaction. Start you on antibiotics and see if helped. May try cool compresses or warm compress *Continue to take medications as directed Keflex 500 mg twice a day for 7 days --> SENT TO [facility] *Follow up with your primary care provider in 2-3 days or call [phone] *Return to ER if you should have increasing pain swelling redness difficulty swallowing or any new, worsening or concerning symptoms Prescriptions: New cephalexin 500 mg capsule 500 mg PO BID 7 Days Qty: 14 0RF No Action estradiol 0.075 mg/24 hr patch semiweekly See Rx Instructions .ROUTE .COMPLEX Qty: 24 3RF Dose Instruction: apply 1 PATCH transdermally twice a week Rx Instructions: apply 1 PATCH transdermally twice a week levothyroxine 137 mcg tablet 137 mcg PO DAILY Qty: 90 1RF Rx Instructions: Take 1 tab by mouth on an empty stomach each morning. Due for labs in 3 mos. omeprazole 20 mg capsule,delayed release(DR/EC) 20 mg PO DAILY Qty: 30 0RF Rx Instructions: Take 1 capsule daily before bedtime to help prevent GERD methocarbamol 500 mg tablet 500 mg PO TID Qty: 30 0RF cholecalciferol (vitamin D3) 125 mcg (5,000 unit) capsule 125 mcg PO DAILY Qty: 1 0RF progesterone micronized 100 mg capsule 300 mg PO QAM Qty: 30 0RF Referrals: Sarah Alves ARNP [Primary Care Provider] - Stand Alone Forms: Patient Portal/API
[2023-01-11 05:32] VITALS: BP 122/64; PULSE 66; RESP 16; TEMP 36.3; O2SAT 99
== END 2023-01-11 05:34 | disposition home or self-care (01) ==
PROVIDERS: Emergency Provider Emergency Medicine; PCP Nurse Practitioner
DX: L03.211 Cellulitis of face (principal)
CPT/HCPCS: 99281

== ENCOUNTER → 2023-03-11 13:01 | Outpatient (CLI) | payer OTHER, SELFPAY ==
[2023-03-11 13:28] LABS: Appearance Urine UA CLEAR; Bilirubin Urine UA NEGATIVE (NEGATIVE); Color Urine UA YELLOW; Glucose Urine UA NEGATIVE (Negative); Ketones Urine UA NEGATIVE (NEGATIVE); Leukocyte Esterase Urine UA NEGATIVE (NEGATIVE); Nitrite Urine UA NEGATIVE (Negative); Occult Blood Urine UA TRACE-INTACT (Negative); Protein Urine UA NEGATIVE (Negative); Urobilinogen Urine UA 0.2 E.U./dL (0.2)
[2023-03-11 13:44] LABS: Amorphous Sediment Urine 3+; Bacteria Urine Moderate (10-30); Culture Indicated Urine Specimen Cultured; RBC Urine 5-10/HPF (0-5/HPF); Squamous Epithelial Cell Urine 5-10 /HPF (0-5/HPF); WBC Urine 0-1/HPF (0-5/HPF)
[2023-03-12 07:09] LABS: Labcorp Hemoglobin (Hb) A1c 5.2 % (4.8-5.6)
== END ==
PROVIDERS: PCP Nurse Practitioner; Referring Provider Nurse Practitioner; Visit Provider Nurse Practitioner
DX: R11.0 Nausea (principal)
CPT/HCPCS: 81001; 83036; 87086

== ENCOUNTER → 2023-03-21 07:58 | Outpatient (CLI) | payer OTHER, SELFPAY ==
[2023-03-21 10:27] LABS: Alanine Aminotransferase 28 IU/L (<35); Albumin 4.4 g/dL (3.5-5.0); Albumin Globulin Ratio 1.5 (1.0-2.8); Alkaline Phosphatase 44 U/L (38-126); Aspartate Aminotransferase 28 IU/L (14-36); BUN Creatinine Ratio 20.5 (6-22); Bilirubin Total 0.4 mg/dL (0.2-1.3); Blood Urea Nitrogen 16 mg/dL (7-17); Calcium 9.2 mg/dL (8.4-10.2); Carbon Dioxide 31 mmol/L (22-32); Chloride 100 mmol/L (98-107); Estimated Glomerular Filt Rate > 60 mL/min (>60); Glucose 102 mg/dL (70-100); HEMOLYSIS < 15 (0-50); Potassium 3.8 mmol/L (3.4-5.1); Sodium 137 mmol/L (137-145); Total Protein 7.4 g/dL (6.3-8.2)
[2023-03-21 10:58] LABS: Thyroid Stimulating Hormone 6.23 uIU/mL (0.47-4.68)
[2023-03-27 07:23] LABS: % Free Progesterone 2.1 % (.); Free Progesterone <0.21 ng/dL (.); Progesterone, Serum <10 ng/dL (.)
[2023-03-27 08:43] LABS: Percent Free Testosterone 1.39 % (0.50-2.80); Testosterone Free 0.14 ng/dL (0.10-0.85); Testosterone Total 10.4 ng/dL (.)
[2023-03-27 16:13] LABS: Estrogen 184 pg/mL (40-244)
== END ==
PROVIDERS: PCP Nurse Practitioner; Referring Provider Nurse Practitioner; Visit Provider Nurse Practitioner
DX: E03.9 Hypothyroidism, unspecified (principal); R63.5 Abnormal weight gain
CPT/HCPCS: 36415; 80053; 82672; 84144; 84402; 84403; 84443; 84999

== ENCOUNTER → 2023-04-04 14:46 | Outpatient (CLI) | payer OTHER, SELFPAY ==
--- NOTE | 2023-04-04 14:47 | DI.RAD.S_ITS ---
PROCEDURE: XR HIP W PEL IF DONE LISET MIN 4V INDICATIONS: bilateral hip tightness and pain in lumbar spine TECHNIQUE: AP pelvis with lateral view(s) of the right and left hip(s). COMPARISON: None. FINDINGS: Bones: No fractures or dislocations. Pelvic ring appears intact. No suspicious bony lesions. Mild bilateral hip joint space narrowing and spurring Soft tissues: The visualized bowel gas pattern is normal. No suspicious soft tissue calcifications. IMPRESSION: Degenerative changes of both hips. Dictated by: Nhan Siegel M.D. on 04/05/2023 at 10:27 Approved by: Nhan Siegel M.D. on 04/05/2023 at 10:27
--- NOTE | 2023-04-04 14:47 | DI.RAD.S_ITS ---
PROCEDURE: XR LUMBAR SPINE 2-3V INDICATIONS: bilateral hip tightness and pain in lumbar spine TECHNIQUE: 3 views of the lumbar spine were acquired. COMPARISON: None. FINDINGS: Bones: 5 [id number] vertebrae are present. There is normal bony alignment. No vertebral body compression fractures. No suspicious bony lesions. Mild degenerative changes of the lumbar spine with facet arthropathy degenerative endplate changes and mild anterior osteophytosis. Degenerative changes of the lower thoracic spine are noted. Soft tissues: Overlying bowel gas pattern is normal. No suspicious soft tissue calcifications. IMPRESSION: Mild degenerative changes of the lumbar spine. No acute fractures. Dictated by: Elkin Ahumada M.D. on 04/04/2023 at 16:15 Approved by: Elkin Ahumada M.D. on 04/04/2023 at 16:16
== END ==
PROVIDERS: PCP Nurse Practitioner; Referring Provider Nurse Practitioner; Visit Provider Nurse Practitioner
DX: M47.816 Spondylosis without myelopathy or radiculopathy, lumbar region (principal); M25.551 Pain in right hip; M25.552 Pain in left hip; M54.50 Low back pain, unspecified; M79.604 Pain in right leg; M79.605 Pain in left leg
CPT/HCPCS: 72100; 73522

== ENCOUNTER 2023-10-02 03:52 | Emergency (ER) | payer OTHER, SELFPAY ==
--- NOTE | 2023-10-02 03:54 | DI.RAD.S_ITS ---
PROCEDURE: XR CHEST 1V INDICATIONS: CHEST PAIN TECHNIQUE: One view of the chest was acquired. COMPARISON: [facility], CR, XR CHEST 1V, 02/15/2020, 4:22. FINDINGS: Surgical changes and devices: Right axillary surgical clips. Lungs and pleura: Lungs are clear. No pleural effusions or pneumothorax. Mediastinum: Mediastinal contours appear normal. Heart size is normal. Bones and chest wall: No suspicious bony lesions. Overlying soft tissues appear unremarkable. IMPRESSION: No acute cardiopulmonary abnormality is seen. Dictated by: Yohana Collazo M.D. on 10/02/2023 at 9:08 Approved by: Yohana Collazo M.D. on 10/02/2023 at 9:08
[2023-10-02 03:57] VITALS: PULSE 74; RESP 23; O2SAT 98
[2023-10-02 03:58] VITALS: BP 145/86; PULSE 70; RESP 21; O2SAT 99
[2023-10-02 04:00] VITALS: BP 147/89; PULSE 76; RESP 22; O2SAT 100
[2023-10-02 04:04] VITALS: BP 145/86; PULSE 71; RESP 14; TEMP 36.2; O2SAT 98; BMI 24.7
--- NOTE | 2023-10-02 04:04 | ED.CHESTPAIN ---
HPI - Chest Pain General Chief Complaint: Chest Pain Stated Complaint: chest pain Time Seen by Provider: 10/02/23 03:54 History of Present Illness HPI narrative: 53-year-old female with history of hypothyroidism, estrogen replacement therapy use presents by private vehicle from home for 3 days of intermittent chest pain that radiates up into her left ear. Patient has been seen previously for chest tightness radiating to her back, this is previously been attributed to acid reflux and typically resolves on its own. 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 This morning the pain came and went several times and so she decided to come to the ER for evaluation. Currently pain-free. Took several Tums earlier this morning with no change in pain. Related Data Previous Rx's Medication Instructions Recorded cholecalciferol (vitamin D3) 125 125 mcg PO DAILY #1 cap 09/08/21 mcg (5,000 unit) capsule omeprazole 20 mg capsule,delayed 20 mg PO DAILY #30 caps 11/28/22 release clonazepam 0.5 mg tablet 0.5 mg PO BEDTIME #30 tabs 04/03/23 diclofenac sodium 25 mg 25 mg PO BID PRN pain #60 tabs 04/03/23 tablet,delayed release levothyroxine 150 mcg tablet 150 mcg PO DAILY #90 tabs 04/03/23 methocarbamol 500 mg tablet 500 mg PO TID PRN muscle spasms 04/03/23 #30 tabs estradiol 0.075 mg/24 hr See Rx Instructions .Route 04/10/23 semiweekly transdermal patch .COMPLEX #24 ea progesterone micronized 100 mg 200 mg (2 x 100 mg) PO QAM #180 08/01/23 capsule caps ondansetron HCl 4 mg tablet 4 mg PO Q8H PRN nausea and 10/01/23 vomiting #20 tabs Allergies Allergy/AdvReac Type Severity Reaction Status Date / Time No Known Drug Allergies Allergy Verified 12/19/22 08:09 Review of Systems Review of Systems Narrative: Negative except as noted above Patient History Medical History Silicone breast implant in situ Depression with anxiety Melanoma Foot pain Urinary urgency Bilateral hip pain (~2018) Hypothyroidism (acquired) Surgical History History of thyroidectomy (~2005) Anesthesia History of breast augmentation (~2006) History of tubal ligation (~2005) Family History Father Hypertension Alcoholic Mother COPD (chronic obstructive pulmonary disease) Brother Suicide Social History Smoking Status: Never smoker Smoking Status: Never smoker alcohol intake frequency: 0-2 drinks per day Alcohol type: wine Substance Use Type: does not use Exam Narrative Exam Narrative: Const: Awake, alert, no acute distress, nontoxic appearing Cardiac: regular rate, regular rhythm RESP: unlabored, clear bilaterally, no wheezing GI: Atraumatic, soft, nondistended MSK: Atraumatic, full range of motion, pulses equal Skin: Warm, Dry, intact, no rashes Neuro: AO x3, CN II-XII grossly intact, moves all extremities Psych: affect normal, mood normal, not suicidal, not homicidal Initial Vital Signs Initial Vital Signs: Vital Signs Pulse Rate 74 10/02/23 03:57 Respiratory Rate 23 10/02/23 03:57 Pulse Oximetry 98 10/02/23 03:57 Oxygen Delivery Method Room Air 10/02/23 03:57 Course Orders Ordered: ED Orders 10/02/23 03:54 Chest [XR chest 1V] Stat EKG-12 Lead Stat 10/02/23 04:04 CBC Auto Diff [Complete Blood Count AUTO DIFF] Stat CMP [Comprehensive Metabolic Panel] Stat Lipase Stat PT [Prothrombin Time INR] Stat Troponin & CK Cardiac Panel Stat Vital Signs Vital signs: Vital Signs - 8 hr 10/02/23 03:57 10/02/23 03:58 10/02/23 03:58 Temperature Pulse Rate 74 70 Respiratory Rate 23 21 Blood Pressure 145/86 H Pulse Oximetry 98 99 Oxygen Delivery Method Room Air Room Air 10/02/23 04:00 10/02/23 04:00 10/02/23 04:04 Temperature 97.2 F L Pulse Rate 76 71 Respiratory Rate 22 14 Blood Pressure 147/89 H 145/86 H Pulse Oximetry 100 98 Oxygen Delivery Method Room Air Room Air 10/02/23 04:30 10/02/23 04:30 10/02/23 05:00 Temperature Pulse Rate 66 Respiratory Rate 11 L Blood Pressure 115/78 126/71 Pulse Oximetry 96 Oxygen Delivery Method Room Air 10/02/23 05:00 Temperature Pulse Rate 62 Respiratory Rate 14 Blood Pressure Pulse Oximetry 97 Oxygen Delivery Method Room Air MDM - Chest Pain Differential Diagnosis Differential diagnosis: Likely stable angina, unstable angina pectoris, atypical chest pain and costochondritis Lab Data 10/02/23 04:10 10/02/23 04:10 Labs: Lab Results 10/02/23 Range/Units 04:10 WBC 4.3 L (4.5-11.0) X10^3/uL RBC 4.18 (4.0-5.2) X10^6/uL Hgb 13.5 (12.0-16.0) g/dL Hct 39.5 (36-46) % MCV 94.6 (80-100) fL MCH 32.3 (26-34) PG MCHC 34.1 (30-36) % RDW 12.8 (11.6-14.8) % Plt Count 266 (150-400) X10^3/uL Neut % (Auto) 41.3 L (50-75) % Lymph % (Auto) 49.2 H (25-40) % [place] % (Auto) 7.1 (3-14) % Eos % (Auto) 2.0 (2-4) % Baso % (Auto) 0.4 (0-2) % Neut # (Auto) 1800 (1568-9494) /uL Lymph # (Auto) 2100 (7761-9075) /uL [place] # (Auto) 300 (0-900) /uL Eos # (Auto) 100 (0-450) /uL Baso # (Auto) 0 (0-100) /uL PT 10.6 (9.4-12.5) SECONDS INR 0.9 (0.9-1.3) Sodium 137 (137-145) mmol/L Potassium 3.8 (3.4-5.1) mmol/L Chloride 102 (98-107) mmol/L Carbon Dioxide 27 (22-32) mmol/L BUN 21 H (7-17) mg/dL Creatinine 0.78 (0.52-1.04) mg/dL Estimated GFR > 60 (>60) mL/min BUN/Creatinine Ratio 26.9 H (6-22) Glucose 110 H (70-100) mg/dL Calcium 9.4 (8.4-10.2) mg/dL Total Bilirubin 0.6 (0.2-1.3) mg/dL AST 28 (14-36) IU/L ALT 27 (<35) IU/L Alkaline Phosphatase 43 (38-126) U/L Total Creatine Kinase 41 (30-135) U/L Troponin I < 0.012 (0.01-0.034) ng/mL Total Protein 7.7 (6.3-8.2) g/dL Albumin 4.4 (3.5-5.0) g/dL Globulin 3.3 (1.7-4.1) g/dL Albumin/Globulin Ratio 1.3 (1.0-2.8) Lipase 82 (23-300) U/L ECG Data Interpretation: Normal sinus rhythm, rate 73 beats per minute. Normal OK, no ST T wave changes, no STEMI MDM Narrative Medical decision making narrative: Well-appearing patient with intermittent chest pains for the last 2-3 days. Currently pain-free. Vitals are reviewed, unremarkable. Physical exam is unremarkable. Heart score 1 based on patient's age, she has no known risk factors, no family history of heart disease, and no cigarette smoking, is a normal weight, normal EKG. Chest x-ray reviewed, unremarkable. Troponin is undetectable. Patient reassessed, resting comfortably in bed, she continues to be pain-free in the emergency department. Patient reassured that EKG, labs, chest x-ray normal, she stated that she wanted to make sure because she and her were scheduled to go on a cruise in the near future and wanted to be assessed before this trip. I recommended that patient be seen by Cardiology since she has come to the emergency department several times over the last year to for chest pains. Referral provided. ED return precautions discussed at bedside. Patient expressed understanding of the plan and is in agreement at this time. All questions answered at the time of discharge. Discharge Plan Departure Patient Disposition: Home Clinical Impression: Chest pain Instructions: DI for Chest Pain Prescriptions: No Action estradiol 0.075 mg/24 hr patch semiweekly See Rx Instructions .ROUTE .COMPLEX Qty: 24 3RF Dose Instruction: apply 1 PATCH transdermally twice a week Rx Instructions: apply 1 PATCH transdermally twice a week progesterone micronized 100 mg capsule 200 mg PO QAM Qty: 180 3RF ondansetron HCl 4 mg tablet 4 mg PO Q8H PRN (Reason: nausea and vomiting) Qty: 20 0RF omeprazole 20 mg capsule,delayed release(DR/EC) 20 mg PO DAILY Qty: 30 0RF Rx Instructions: Take 1 capsule daily before bedtime to help prevent GERD clonazepam 0.5 mg tablet 0.5 mg PO BEDTIME Qty: 30 2RF Rx Instructions: administer 30 minutes before bedtime methocarbamol 500 mg tablet 500 mg PO TID PRN (Reason: muscle spasms) Qty: 30 3RF diclofenac sodium 25 mg tablet,delayed release (DR/EC) 25 mg PO BID PRN (Reason: pain) Qty: 60 3RF levothyroxine 150 mcg tablet 150 mcg PO DAILY Qty: 90 1RF cholecalciferol (vitamin D3) 125 mcg (5,000 unit) capsule 125 mcg PO DAILY Qty: 1 0RF Referrals: Sarah Alves ARNP [Primary Care Provider] - Misty Lopez DO [Physician] - Stand Alone Forms: Patient Portal/API
[2023-10-02 04:30] VITALS: BP 115/78; PULSE 66; RESP 11; O2SAT 96
[2023-10-02 04:32] LABS: Add Manual Diff / Slide Review NO; Basophils Absolute Auto 0 /uL (0-100); Basophils Percent Auto 0.4 % (0-2); Eosinophils Absolute Auto 100 /uL (0-450); Hematocrit 39.5 % (36-46); Hemoglobin 13.5 g/dL (12.0-16.0); Lymphocytes Absolute Auto 2100 /uL (1100-4500); Lymphocytes Percent Auto 49.2 % (25-40); Mean Corpuscular HGB Conc 34.1 % (30-36); Mean Corpuscular Hemoglobin 32.3 PG (26-34); Mean Corpuscular Volume 94.6 fL (80-100); Monocytes Absolute Auto 300 /uL (0-900); Monocytes Percent Auto 7.1 % (3-14); Neutrophils Absolute Auto 1800 /uL (1500-7000); Neutrophils Percent Auto 41.3 % (50-75); Platelet Count 266 X10^3/uL (150-400); Red Blood Cell Count 4.18 X10^6/uL (4.0-5.2); Red Cell Distribution Width 12.8 % (11.6-14.8); White Blood Cell Count 4.3 X10^3/uL (4.5-11.0)
[2023-10-02 04:34] LABS: INR 0.9 (0.9-1.3); Prothrombin Time 10.6 SECONDS (9.4-12.5)
[2023-10-02 04:38] LABS: Alanine Aminotransferase 27 IU/L (<35); Albumin 4.4 g/dL (3.5-5.0); Albumin Globulin Ratio 1.3 (1.0-2.8); Alkaline Phosphatase 43 U/L (38-126); Aspartate Aminotransferase 28 IU/L (14-36); BUN Creatinine Ratio 26.9 (6-22); Bilirubin Total 0.6 mg/dL (0.2-1.3); Blood Urea Nitrogen 21 mg/dL (7-17); Calcium 9.4 mg/dL (8.4-10.2); Carbon Dioxide 27 mmol/L (22-32); Chloride 102 mmol/L (98-107); Creatine Kinase 41 U/L (30-135); Estimated Glomerular Filt Rate > 60 mL/min (>60); Globulin 3.3 g/dL (1.7-4.1); Glucose 110 mg/dL (70-100); HEMOLYSIS < 15 (0-50); Lipase 82 U/L (23-300); Potassium 3.8 mmol/L (3.4-5.1); Sodium 137 mmol/L (137-145); Total Protein 7.7 g/dL (6.3-8.2)
[2023-10-02 04:50] LABS: Troponin I < 0.012 ng/mL (0.01-0.034)
[2023-10-02 05:00] VITALS: BP 126/71; PULSE 62; RESP 14; O2SAT 97
== END 2023-10-02 05:23 | disposition home or self-care (01) ==
PROVIDERS: Emergency Provider Emergency Medicine; PCP Nurse Practitioner
DX: R07.9 Chest pain, unspecified (principal)
CPT/HCPCS: 36415; 71045; 80053; 82550; 83690; 84484; 85025; 85610; 93005; 99284

== ENCOUNTER → 2023-10-23 15:00 | Outpatient (CLI) | payer OTHER, SELFPAY ==
--- NOTE | 2023-10-24 00:20 | DI.NM.S_ITS ---
DATE OF SERVICE: 10/23/2023 PROCEDURE: Exercise treadmill exercise treadmill stress test without imaging. ORDERING PROVIDER: SUSAN Ward. INDICATIONS: The patient is a 53-year-old female with intermittent atypical chest discomfort. FINDINGS: 1. The patient was able to exercise for 9 minutes and 4 seconds on a standard Ramiro protocol suggesting very good exercise capacity with an ANGELO of -22%, achieving 10.1 METS. 2. She had a normal heart rate and blood pressure response to exercise, achieving a maximum heart rate of 150 BPM (94% of her predicted maximum). 3. She had no chest discomfort or other anginal symptoms. 4. The resting ECG showed sinus rhythm with normal ST segments. There were no significant ST-segment shifts or arrhythmias with stress with the exception of an isolated PAC and PVC. IMPRESSION: 1. Normal exercise treadmill stress test for ischemia. 2. Very good exercise capacity without angina or concerning arrhythmias. Blank Monreal - MICHELLE/nicolas/SUSANA doc#: [id number]/job#: [id number] dd: 10/23/2023 16:42:00 dt: 10/24/2023 00:13:00 DICTATING /COPIES TO: Per Mathews MD; Sarah Alves NP COPIES MNE: VIPUL;
== END ==
PROVIDERS: PCP Nurse Practitioner; Referring Provider Nurse Practitioner; Visit Provider Nurse Practitioner
DX: R07.89 Other chest pain (principal)
CPT/HCPCS: 93017

== ENCOUNTER → 2023-12-06 09:43 | Outpatient (CLI) | payer OTHER, SELFPAY ==
[2023-12-06 11:03] LABS: Testosterone 33.3 ng/dL (5.71-77.0)
[2023-12-06 11:06] LABS: Thyroid Stimulating Hormone 1.26 uIU/mL (0.47-4.68)
[2023-12-11 13:44] LABS: Estrogen 198 pg/mL (40-244)
== END ==
PROVIDERS: PCP Nurse Practitioner; Referring Provider Nurse Practitioner; Visit Provider Nurse Practitioner
DX: Z78.0 Asymptomatic menopausal state (principal); Z79.890 Hormone replacement therapy; R07.9 Chest pain, unspecified; F41.8 Other specified anxiety disorders; E03.9 Hypothyroidism, unspecified
CPT/HCPCS: 36415; 82672; 84144; 84403; 84443

== ENCOUNTER → 2024-06-05 13:13 | Outpatient (CLI) | payer OTHER, SELFPAY | PROVIDERS: Referring Provider Internal Medicine; Visit Provider Internal Medicine | DX: Z23 Encounter for immunization (principal) | CPT/HCPCS: 90471; 90656 ==

== ENCOUNTER → 2024-10-19 07:29 | Outpatient (CLI) | payer OTHER, SELFPAY ==
--- NOTE | 2024-10-19 07:31 | DI.US.S_ITS ---
PROCEDURE: US THYROID INDICATIONS: hx of bilateral papillary thyroid TECHNIQUE: Real-time scanning was performed of the thyroid gland, with image documentation. COMPARISON: None. FINDINGS: The patient is status post thyroidectomy. No suspicious is mass or nodule identified in the surgical bed. IMPRESSION: Status post thyroidectomy without sonographic evidence of residual recurrent disease. Approved by: Kayli Daugherty M.D.,Ph.D. on 10/19/2024 at 13:55
--- NOTE | 2024-10-19 07:31 | DI.US.S_ITS ---
LIMITED ULTRASOUND OF RIGHT BREAST: 10/19/2024 CLINICAL: 6 month follow up right breast. Comparison is made to exams dated: 11/19/2022 ultrasound, 11/19/2022 mammogram, 08/01/2021 ultrasound, 08/01/2021 mammogram, and 06/27/2021 mammogram - [facility]. Color flow and real-time ultrasound of the right breast 5 o'clock region were performed. Stratton scale images of the real-time examination were reviewed. There is a 0.4 cm x 0.5 cm x 0.2 cm oval mass in the right breast at 5 o'clock anterior depth 1 cm from the nipple. This oval mass is hypoechoic with a well-defined boundary and no posterior acoustic shadowing or enhancement. This abnormality is not significantly changed. Color flow imaging demonstrates that there is no vascularity present. IMPRESSION: BENIGN There is no sonographic evidence of malignancy. The 0.4 cm x 0.5 cm x 0.2 cm oval mass in the right breast is stable, has a differential diagnosis of a complicated cyst, a lymph node, fibroglandular tissue, or a fibroadenoma. This finding has demontrated two years of stability and is therefore benign. Return to annual mammogram screening schedule is recommended. Findings and recommendations were conveyed to the patient at time of exam. This exam was interpreted at Station ID: [id number]. Electronically Signed By: Yohana fried/:10/19/2024 08:29:22 letter sent: Normal Exam ACR BI-RADS Category 2: Benign
== END ==
PROVIDERS: PCP Family Medicine; Referring Provider Family Medicine; Visit Provider Family Medicine
DX: R92.8 Other abnormal and inconclusive findings on diagnostic imaging of breast (principal); N63.14 Unspecified lump in the right breast, lower inner quadrant; Z85.850 Personal history of malignant neoplasm of thyroid
CPT/HCPCS: 76536; 76642

== ENCOUNTER → 2025-02-27 12:05 | Outpatient (CLI) | payer OTHER, SELFPAY ==
[2025-02-27 13:10] LABS: Testosterone 8.86 ng/dL (5.71-77.0)
[2025-02-27 13:25] LABS: TSH w/ Reflex to FT4 2.45 uIU/mL (0.47-4.68)
== END ==
LOC: LAB 12:06
PROVIDERS: PCP Family Medicine; Referring Provider Family Medicine; Visit Provider Family Medicine
DX: E03.9 Hypothyroidism, unspecified (principal); Z78.0 Asymptomatic menopausal state
CPT/HCPCS: 36415; 82672; 84403; 84443

== ENCOUNTER → 2025-03-29 16:20 | Outpatient (CLI) | payer OTHER, SELFPAY ==
--- NOTE | 2025-03-29 16:20 | DI.US.S_ITS ---
PROCEDURE: US PELVIC COMPLETE INDICATIONS: VAGINAL BLEEDING TECHNIQUE: Real-time scanning was performed of the pelvic organs, with image documentation. Additional endovaginal scanning was necessary due to incomplete visualization of the adnexal and endometrial structures by transabdominal scanning. COMPARISON: [facility], , US PELVIC COMPLETE, 12/12/2022, 12:31. FINDINGS: Uterus: Uterus is anteverted and normal in size at 11.7 x 6.6 x 7.7 cm. The myometrium is heterogeneous. The endometrium measures 10 mm combined thickness. There is a right, posterior submucosal fibroid measuring 1.7 x 1.3 cm. There is a right posterior subserosal fibroid measuring 2.5 x 2.1 x 4.3 cm. Ovaries: The right ovary measures 1.7 x 1.1 x 1.9 cm, with a calculated ovarian volume of 1.9 cc. The left ovary is not visualized on today's exam. The right ovary has a normal sonographic appearance. Less than 12 follicles can be seen in the right ovary. No adnexal masses are seen. Other: No pathologic free abdominal or pelvic fluid. IMPRESSION: 1. Thickened endometrium in this postmenopausal patient with vaginal bleeding is abnormal and further evaluation with endometrial biopsy is recommended. 2. Unremarkable appearance of the right ovary. 3. Nonvisualization of the left ovary. 4. Fibroid uterus. We strive to produce accurate, complete, and clear reports of imaging services. To assist us in improving patient care, this report was composed using standard report templates and voice recognition software. Therefore, it may contain abnormal punctuation, insertions and/or omissions. Occasional wrong-word or sound-alike substitutions may occur. Though we review the report and make efforts to correct it, we do recommend that the report be read carefully in proper context to recognize any text inaccuracies. Dictated by: Db Glover M.D. on 03/30/2025 at 10:23 Approved by: Db Glover M.D. on 03/30/2025 at 10:26
== END ==
PROVIDERS: PCP Family Medicine; Referring Provider Specialist; Visit Provider Specialist
DX: N92.4 Excessive bleeding in the premenopausal period (principal); R93.89 Abnormal findings on diagnostic imaging of other specified body structures; D25.0 Submucous leiomyoma of uterus; D25.2 Subserosal leiomyoma of uterus
CPT/HCPCS: 76830; 76856

== ENCOUNTER → 2025-05-19 11:04 | Outpatient (CLI) | payer OTHER, SELFPAY ==
[2025-05-19 13:37] LABS: Folate 10.3 ng/mL (2.76-20.0); Vitamin B12 > 1000 pg/mL (239-931)
== END ==
PROVIDERS: PCP Family Medicine; Referring Provider Specialist; Visit Provider Specialist
DX: D53.1 Other megaloblastic anemias, not elsewhere classified (principal)
CPT/HCPCS: 36415; 82607; 82746; 83090; 83921

== ENCOUNTER 2025-08-23 09:13 | Day surgery (SDC) | payer OTHER, SELFPAY ==
[2025-08-18 10:30] VITALS: BMI 23.3
[2025-08-23] VITALS (9 sets, daily range): BP systolic 104–133; BP diastolic 61–76; PULSE 63–76; RESP 12–25; TEMP 36.3–36.5; O2SAT 95–98
--- NOTE | 2025-08-23 | PATH_ITS ---
[facility] Accession Number: [id number] No. of containers..01 Tissue . 01 Material submitted: . endometrium - ENDOMETRIAL CONTENTS . 01 Diagnosis: ENDOMETRIAL CONTENTS: Disordered proliferative endometrium with features of shedding; negative for endometrioid intraepithelial neoplasia or malignancy. Some endometrial fragments demonstrate prominent vessels, suggestive of polyp, if clinical and imaging studies are concordant. Scattered fragments of endometrium are attached to myometrium with no evidence of cytologic atypia, regions of necrosis, or increased cytologic atypia. Portions of endocervix / lower uterine segment; negative for significant atypia. Ectocervix with no significant atypia. MRV 08/30/2025 1340 Local . 01 Electronically signed: . Evelyn Nichole MD, Pathologist NPI- [id number] . 01 Gross description: . Received one formalin-filled container, labeled with the patient's name and designated endometrial contents. Specimen consists of multiple fragments of tissue, mucoid material, and blood, which measures 2.0 x 2.0 x 0.2 cm in aggregate. Filtered, wrapped, and entirely submitted in one cassette. ([id number]) /LAYNE 08/25/2025 1003 Local . 01 Pathologist provided ICD-10: N93.9 . 01 CPT . 469315 Specimen Comment: A courtesy copy of this report has been sent to [facility] Pathology Performed at: [address] [address], [place], [place] [id number] MD Kris Villareal MD Phone: [phone]
[2025-08-23] MEDS: ACETAMINOPHEN 325 MG TABLET 975 MG PO (09:55)
[2025-08-23] MEDS: LACTATED RINGERS 1,000 ML 42 ML IV (09:56)
--- NOTE | 2025-08-23 10:43 | PM.GYNHP.1 ---
History of Present Illness History of Present Illness Narrative: Blank Monreal is a 55 year old female postmenopausal female presents for scheduled hysteroscopy with myosure polypectomy and D&C in setting of recurrent PMB. Patient last seen in office 06.26.25, embx at that time negative for EIN but +polyp and patient affirms desire to proceed with procedure today as scheduled. Denies significant interval changes in personal or family health history since time of last encounter. [facility] Medical History (System 07/26/25 @ 09:04 by Alanna Santiago) Abnormal pelvic ultrasound Thickened endometrium Tendinopathy of left gluteus medius Papillary thyroid carcinoma Postmenopausal HRT (hormone replacement therapy) Post-menopause Sliding hiatal hernia Esophageal spasm Gastric reflux Silicone breast implant in situ Depression with anxiety Melanoma Foot pain Urinary urgency Bilateral hip pain (~2018) Hypothyroidism (acquired) Surgical History (System 07/26/25 @ 09:04 by Alanna Santiago) History of thyroidectomy (~2005) Anesthesia History of breast augmentation (~2006) History of tubal ligation (~2005) Family History (System 07/26/25 @ 09:04 by Alanna Santiago) Father Hypertension Alcoholic Mother COPD (chronic obstructive pulmonary disease) Brother Suicide Meds Home Medications and Allergies Home Medications ?Medication ?Instructions ?Recorded ?Confirmed ?Type cholecalciferol (vitamin D3) 125 125 mcg PO DAILY #1 cap 09/08/21 06/30/25 Rx mcg (5,000 unit) capsule diclofenac sodium 25 mg 25 mg PO BID PRN pain #60 tabs 04/03/23 06/30/25 Rx tablet,delayed release methocarbamol 500 mg tablet 500 mg PO TID PRN muscle spasms 04/03/23 06/30/25 Rx #30 tabs ondansetron HCl 4 mg tablet 4 mg PO Q8H PRN nausea and 10/01/23 06/30/25 Rx vomiting #20 tabs omeprazole 20 mg capsule,delayed 20 mg PO BID #180 caps 10/02/23 06/30/25 Rx release estradiol 10 mcg vaginal tablet 10 mcg vaginal DAILY 2 weeks #48 11/25/23 06/30/25 Rx tabs progesterone micronized 100 mg 200 mg (2 x 100 mg) PO QAM #180 01/18/25 06/30/25 Rx capsule caps levothyroxine 150 mcg tablet 150 mcg PO DAILY #90 tabs 05/19/25 06/30/25 Rx testosterone 25 mg implant pellet mg implant 05/19/25 06/30/25 History semaglutide 1 mg/dose (4 mg/3 mL) See Rx Instructions SUBCUT QWEEK 07/22/25 History subcutaneous pen injector Allergies Allergy/AdvReac Type Severity Reaction Status Date / Time No Known Drug Allergies Allergy Verified 07/26/25 09:04 Review of Systems Review of Systems ROS: Yes All systems reviewed with the patient and are negative except as otherwise documented Exam Vital Signs (past 8 hours): - 08/23/25 09:49 Temperature 97.4 F L Pulse Rate 63 Respiratory Rate 18 Blood Pressure 124/76 Pulse Oximetry 98 Oxygen Delivery Method Room Air Oxygen Delivery Method Room Air Const General: cooperative, healthy appearing and comfortable HENMT Head: normal to inspection Resp Effort & Inspection: normal respiratory effort and able to speak in complete sentences Cardio Pulses: normal peripheral pulses Other: deferred Skin General: no rashes or lesions noted Neuro General: patient alert, patient awake and patient oriented x3 Extrem General: normal to inspection Psych Mental Status: mental status grossly normal Judgment: judgment good Assessment & Plan Assessment and plan (1) Abnormal pelvic ultrasound: Status: Acute (2) Postmenopausal HRT (hormone replacement therapy): Status: Acute Plan 55yo postmenopausal female on HRT presents for scheduled hysteroscopy with myosure polypectomy/D&C pt affirms desire to proceed as scheduled anticipate dc to home pending routine postoperative recovery, outpatient f/u in office as scheduled Time-Based Coding :: [TOTAL MINUTES] spent with patient and on the chart (including review of chart, obtaining history, exam, reviewing outside data, placing orders, documenting exam and treatment plan, and counseling patient) on [DATE].
--- NOTE | 2025-08-23 10:47 | PM.PREOP ---
Pre-operative Note Interval Note History & Physical reviewed/Exam performed by Physician: Yes Changes to H&P: No ASA Class (for procedural sedation): I
--- NOTE | 2025-08-23 11:54 | PM.OP.1 ---
Operative Date/Time/Diagnoses Date of procedure: 08/23/25 Time of procedure: 11:54 Pre-op diagnosis: AUB, abnormal pelvic US Post-op diagnosis: same Procedure & Clinicians Procedure: hysteroscopy, myosure polypectomy, dilation and curettage Same procedure(s) as scheduled: Yes Surgeon: Rupal Mera Assisted?: No Anesthesia Type: General Operative Notes Findings: normal external female genitalia, perineum and anus cervix visually wnl L lateral pedunculated endometrial polyp R anterolateral submucosal fibroid Specimen(s): other (endometrial contents ) Applied: none Estimated Blood Loss (mL): 2 Blood products transfused: none Procedure in detail: Pt was taken to the operating room, transferred to OR table and anesthesia was induced with placement of LMA.? Pt had her legs placed in Feliberto stirrups and an exam under anesthesia was performed. The patient was prepped and draped in a sterile fashion.? A time out was performed. ?The bladder was emptied via straight catheter in sterile fashion.? A sterile speculum was inserted into the vagina.? The cervix was visualized and grasped anteriorly using a single tooth tenaculum.? The uterus sounded to [XXX] cm and the cervical os was serially dilated using Ponce dilators up to 17f to allow for passage of the hysteroscope.? The 5mm 0 degree hysteroscope was then inserted into the uterus with findings as noted.? The small Myosure device was introduced and the endometrium including visualized pathology was fractionally resected under direct visualization.?The hysteroscope was removed and the uterus was sharply curetted until a gritty texture was noted throughout.? The tenaculum was removed and hemostasis was noted at insertion sites.? The speculum was removed and hemostasis was again noted to be excellent.? The patient then had her legs taken out of stirrups.? The patient tolerated the procedure well and without difficulty.? The patient was awakened from anesthesia and taken to PACU in stable condition. Complications: none Post-operative Condition: stable Disposition: PACU Plan for aftercare: anticipate dc to home pending clinical course, routine postop f/u as scheduled
--- NOTE | 2025-08-23 12:05 | SUR.OPER ---
Lithotomy on padded OR bed, head on pillow, arms secured on padded arm boards at <90 degrees abduction. Legs secured in padded yellow fins stirrups.
[2025-08-23] MEDS: ONDANSETRON 4 MG/2 ML INJ IV ×2 (12:17→13:01)
== END 2025-08-23 13:18 | disposition home or self-care (01) ==
PROVIDERS: PCP Family Medicine; Referring Provider Obstetrics & Gynecology; Visit Provider Obstetrics & Gynecology
PROC: 0UDB8ZZ Extraction of Endometrium, Via Natural or Artificial Opening Endoscopic (ICD-10-PCS; CPT 58558; principal; 2025-08-23 11:00)
DX: N93.9 Abnormal uterine and vaginal bleeding, unspecified (principal); R93.89 Abnormal findings on diagnostic imaging of other specified body structures; Z79.890 Hormone replacement therapy; N84.0 Polyp of corpus uteri; D25.0 Submucous leiomyoma of uterus
CPT/HCPCS: 58558; J1171; J1885; J2405; J2704; J3010; J7120